=== PATIENT | female | born 1990 | race Two or more races ===

== ENCOUNTER 2018-08-10 09:47 | Emergency (ER) | payer MEDICAID, OTHER ==
[~2018-08-10] VITALS: Ht 154.9 cm; Wt 51.7 kg
[2018-08-10 09:54] VITALS: BP 129/92
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
--- NOTE | 2018-08-10 10:09 | NUR ---
DR PEREZ AT BEDSIDE
== END 2018-08-10 10:25 | disposition home or self-care (01) ==
LOC: ER 09:47
DX: J32.9 Chronic sinusitis, unspecified (principal)

== ENCOUNTER 2020-12-13 20:14 | Emergency (ER) | payer MEDICAID ==
--- NOTE | 2020-12-13 22:06 | NUR ---
CALLED FOR TRIAGE , NO ANSWER
--- NOTE | 2020-12-13 22:24 | NUR ---
CALLED FOR TRIAGE , NO ANSWER
== END 2020-12-13 22:26 | disposition left against medical advice (07) ==
LOC: ER 20:20
DX: Z02.89 Encounter for other administrative examinations (principal); Z53.21 Procedure and treatment not carried out due to patient leaving prior to being seen by health care provider

== ENCOUNTER 2021-01-24 19:54 | Emergency (ER) | payer MEDICAID ==
[~2021-01-24] VITALS: Ht 162.6 cm; Wt 54.4 kg
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
--- NOTE | 2021-01-24 20:26 | NUR ---
URINE SENT TO LAB
--- NOTE | 2021-01-24 20:45 | NUR ---
PT SIGNED WAIVER
--- NOTE | 2021-01-24 20:45 | NUR ---
PT TAKEN TO RAD
[2021-01-24] MEDS ORDERED: KETOROLAC TROMETHAMINE INJ 30 MG/ML VIAL ONE (20:50)
--- NOTE | 2021-01-24 20:50 | NUR ---
RETURNED FROM RADIOLOGY
[2021-01-24] MEDS ORDERED: KETOROLAC TROMETHAMINE INJ 30 MG/ML VIAL IM ONE (21:00)
[2021-01-24] MEDS ORDERED: IBUP-1955 PO (21:37)
[2021-01-24 21:47] VITALS: BP 119/72
--- NOTE | 2021-01-24 21:47 | NUR ---
Patient discharged to home in stable condition. RX Written and verbal after care instructions given. Patient verbalizes understanding of instruction. PT ambulatory with a steady gait.
== END 2021-01-24 21:48 | disposition home or self-care (01) ==
LOC: ER 19:58
DX: S16.1XXA Strain of muscle, fascia and tendon at neck level, initial encounter (principal); R51.9 Headache, unspecified; Z79.899 Other long term (current) drug therapy; V49.49XA Driver injured in collision with other motor vehicles in traffic accident, initial encounter; Y93.89 Activity, other specified; Y92.488 Other paved roadways as the place of occurrence of the external cause; Y99.8 Other external cause status
CPT/HCPCS: 70450; 72125; 96372; 99284; J1885